=== PATIENT | female | born 1995 | race Caucasian/White ===

== ENCOUNTER 2017-11-28 00:31 | Emergency (ER) | payer MEDICAID ==
[~2017-11-28] VITALS: Ht 165.1 cm; Wt 88.5 kg
[~2017-11-28 00:31] MED LIST: ALBUPOW26
[2017-11-28 00:52] VITALS: BP 123/70
== END 2017-11-28 04:18 | disposition home or self-care (01) ==
LOC: ER 00:31
DX: R51 Headache (principal); M62.838 Other muscle spasm
CPT/HCPCS: 70450

== ENCOUNTER 2019-10-18 21:27 | Emergency (ER) | payer MEDICAID ==
[~2019-10-18] VITALS: Ht 162.6 cm; Wt 88.5 kg
[2019-10-18 23:08] VITALS: BP 115/78
[2019-10-18] MEDS ORDERED: methylPREDNISolone SOD SUCC 125 MG/2 ML VL IM ONE (23:30)
[2019-10-18] MEDS ORDERED: cefTRIAXone SOD 1,000 MG VL IM ONE (23:30)
== END 2019-10-19 00:03 | disposition home or self-care (01) ==
LOC: ER 21:28
DX: S70.362A Insect bite (nonvenomous), left thigh, initial encounter (principal); L03.116 Cellulitis of left lower limb; S50.861A Insect bite (nonvenomous) of right forearm, initial encounter; J45.909 Unspecified asthma, uncomplicated; W57.XXXA Bitten or stung by nonvenomous insect and other nonvenomous arthropods, initial encounter; Y93.89 Activity, other specified; Y92.89 Other specified places as the place of occurrence of the external cause; Y99.8 Other external cause status
CPT/HCPCS: 96372; 99284; J0696; J2930